=== PATIENT | female | born 1975 | race Caucasian/White ===

== ENCOUNTER 2017-09-10 17:46 | Emergency (ER) | payer OTHER ==
[~2017-09-10] VITALS: Ht 180.3 cm; Wt 79.9 kg
[~2017-09-10 17:46] MED LIST: CMD5 PO; OXYC-57 PO; TYLUNK PO
[2017-09-10 17:50] VITALS: TEMP 36.5; Ht 180.3 cm; Wt 79.9 kg
[2017-09-10 19:00] VITALS: BP 143/79; PULSE 77; O2SAT 99
--- NOTE | 2017-09-10 19:50 | EMERGENCY ROOM VISIT NOTE ---
History Report prepared by Jair: Sami Almanzar Under the Supervision of: Dr. Zackary Lewis M.D. First contact with patient: 18:11 Chief Complaint: BACK PAIN Stated Complaint: LOWER BACK PAIN History of Present Illness The patient is a 41 year old female who presents to the Emergency Room with complaints of constant right lower back pain beginning today. 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 She notes that she saw a chiropractor who reported that she had a problem with the spacing between the discs in her spine based on x-rays. The patient states that she did not have any pain for a few years, but notes that she developed pain today while twisting to the side at work. She reports that the [employer] where she works referred her to the emergency department tonight. The patient states that her pain does not go down her legs. She notes that her pain worsens with movement. She denies any loss in bladder/bowel control, fever, abdominal pain, and numbness in her groin. She reports that there is no chance that she is . Source of History: patient Onset: today Position: back (lower) Timing: constant Modifying Factors (Worsening): movement Associated Symptoms: No fevers, No abdominal pain, No numbness (in her groin ) Note: The patient denies any leg pain. The patient also denies any loss in bladder/ bowel control. Review of Systems See HPI for pertinent positives & negatives. A total of 10 systems reviewed and were otherwise negative. 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 Eyes: Pupils are equal round reactive to light. Conjunctiva are noninjected. ENT: Pharynx is clear without erythema or exudate. Mucous membranes are moist. Neck supple without meningeal signs. Respiratory: Clear to auscultation bilaterally. Breath sounds are equal bilaterally. Cardiovascular: Regular rate and rhythm. No rubs or gallops. GI: Soft, nondistended and nontender. Bowel sounds are present. Musculoskeletal: No peripheral edema. No lower extremity tenderness. No midline tenderness to the thoracic or lumbosacral spine, no SI joint tenderness. Integumentary: No cyanosis. Neurological: The patient is awake and alert. No focal deficits. Normal motor and strength, normal motor and sensation in lower extremities. Psychiatric: Normal affect. Medical Decision & Procedures ED Course 1811: The patient was evaluated in room D5. A complete history and physical exam was performed. 1831: I reevaluated the patient. I explained to her that we do not do workers compensation forms at the emergency department. I told her that she would have to call her employer. 1901: Upon reevaluation, the patient appeared to have improvement of her symptoms. I discussed jessica's findings with her. She verbalized agreement of the treatment plan. The patient was discharged home. Medical Decision This is a 41-year-old female presents with low back pain. Differential diagnosis includes strain, spinal stenosis, lumbar disc disease, spondylolisthesis. I did perform a limited focused review of portions of the patient's old chart on the electronic medical record. The patient has had no recent pertinent visits to this hospital. I did evaluate the patient as noted above. She is neurologically intact and has no signs of cauda equina syndrome. She has a history of back problems which were exacerbated when twisting at work. She denies any injury or fall. I do not feel x-rays are indicated. She states the only reason she came here was she was told by her employer to come here and have a work form filled out. I did review the form and explained to her that we did not fill out these types of forms and that she would she does have to see a Worker's Compensation doctor. She did not wish to have any pain medication. She states she likes to keep her body "clean." She states the only reason she came here was to be able to go back to work. Blood Pressure Screening Patient's blood pressure: Normal blood pressure Blood pressure disposition: Did not require urgent referral Impression Primary Impression: Low back pain Scribe Attestation The scribe's documentation has been prepared under my direct and personally reviewed by me in its entirety. I confirm that the note above accurately reflects all work, treatment, procedures, and medical decision making performed by me. Departure Information Dispostion Home / Self-Care Prescriptions No Active Prescriptions or Reported Meds Forms HOME CARE DOCUMENTATION FORM, IMPORTANT VISIT INFORMATION Patient Instructions [facility] Additional Instructions You have been examined and treated today on an emergency basis only. This is not a substitute for, or an effort to provide, complete comprehensive medical care. It is impossible to recognize and treat all injuries or illnesses in a single emergency department visit. It is therefore important that you follow up closely with your physician. Call as soon as possible for an appointment. Return for worsening symptoms or if you develop fever, vomiting, abdominal pain , loss of control of your bowel or bladder, numbness or weakness to your legs, numbness to your private area, difficulty urinating, or any other concerning symptoms. Problem Qualifiers Primary Impression: Low back pain Chronicity: acute Back pain laterality: right Sciatica presence: without sciatica Qualified Codes: M54.5 - Low back pain
== END 2017-09-10 19:01 | disposition home or self-care (01) ==
LOC: C.EDB 17:47 → C.EDD 19:01
DX: M54.5 Low back pain (principal); X50.1XXA Overexertion from prolonged static or awkward postures, initial encounter